=== PATIENT | male | born 1965 | race Asian ===

== ENCOUNTER 2018-06-03 19:47 | Emergency (ER) | payer SELFPAY ==
[~2018-06-03] VITALS: Ht 167.6 cm; Wt 73.0 kg
[2018-06-03] MEDS ORDERED: ONDANSETRON 4MG ODT PO ONE (22:45)
[2018-06-03] MEDS ORDERED: KETOROLAC 30MG/ML VIAL IM ONE (22:45)
[2018-06-03] MEDS ORDERED: MORPHINE SULFATE 10 MG/ML CPJ IM ONE (22:45)
[2018-06-04 02:05] VITALS: BP 146/91
== END 2018-06-04 02:45 | disposition home or self-care (01) ==
LOC: ER 20:00
DX: S00.03XA Contusion of scalp, initial encounter (principal); Y04.2XXA Assault by strike against or bumped into by another person, initial encounter; R03.0 Elevated blood-pressure reading, without diagnosis of hypertension; Y93.89 Activity, other specified; Y92.89 Other specified places as the place of occurrence of the external cause
CPT/HCPCS: 70450; 96372; 99284; J1885; J2270; Q0162; Z7610